=== PATIENT | female | born 1955 | race Caucasian/White ===

== ENCOUNTER 2016-08-20 10:26 | Emergency (ER) | payer BC ==
[2016-08-20 10:34] VITALS: BP 115/72
--- NOTE | 2016-08-20 10:37 | UC ---
Skin Complaint HPI - HPI Summary HPI Summary: 61 YEAR OLD FEMALE PRESENTS WITH RASH ON RIGHT LOWER LEG. - History of Current Complaint Chief Complaint: UCSkin Time Seen by Provider: 08/20/16 10:36 Stated Complaint: RASH - Allergy/Home Medications Allergies/Adverse Reactions: Allergies Allergy/AdvReac Type Severity Reaction Status Date / Time No Known Allergies Allergy Verified 07/10/13 12:55 Home Medications: Home Medications Aspirin [Aspirin 81 MG TAB] 81 mg PO 08/20/16 [History Confirmed 08/20/16] Multiple Vitamins W/ Minerals [Multivitamin] 1 liq PO 08/20/16 [History] Review of Systems Constitutional: Negative Skin: Rash Eyes: Negative ENT: Negative Respiratory: Negative Cardiovascular: Negative Gastrointestinal: Negative Genitourinary: Negative Motor: Negative Neurovascular: Negative Musculoskeletal: Negative Neurological: Negative Psychological: Negative All Other Systems Reviewed And Are Negative: Yes PMH/Surg Hx/FS Hx/Imm Hx - Surgical History Surgical History: Yes Surgery Procedure, Year, and Place: . tonsillectomy. vocal chord polyps - Social History Alcohol Use: Weekly Substance Use Type: None Smoking Status (MU): Former Smoker When Did the Patient Quit Smoking/Using Tobacco: 40 years ago Physical Exam Triage Information Reviewed: Yes Vital Signs: Initial Vital Signs Temp 36.6 C 08/20/16 10:31 Pulse 80 08/20/16 10:31 Resp 16 08/20/16 10:31 BP 115/72 08/20/16 10:31 Pulse Ox 98 08/20/16 10:31 Eye Exam: Normal ENT Exam: Normal Dental Exam: Normal Neck exam: Normal Neck: Positive: 1 Respiratory Exam: Normal Cardiovascular Exam: Normal Abdominal Exam: Normal Musculoskeletal Exam: Normal Neurological Exam: Normal Psychological Exam: Normal Skin: Positive: rashes - RIGHT LOWER LEG RASH Course/Dx - Diagnoses Provider Diagnoses: RASH Discharge - Discharge Plan Condition: Stable Disposition: HOME Prescriptions: DOXYcycline CAP(*) [DOXYcycline 100MG CAP(*)] 100 mg PO BID #14 cap Methylprednisolone [Medrol Dosepak 4 MG*] 4 mg PO .SEE GUSTAVO INSTRUCTION #21 tab Triamcinolone 0.1% CREAM(NF) [Kenalog Cream 0.1%(NF)] 1 applic TOPICAL BID #45 gm Patient Education Materials: Acute Rash (ED), Insect Bite or Sting (ED) Referrals: Lise Ragsdale MD [Primary Care Provider] - As Soon As Possible
== END 2016-08-20 10:49 | disposition home or self-care (01) ==
LOC: UCEAST 10:26
DX: R21 Rash and other nonspecific skin eruption (principal); Z87.891 Personal history of nicotine dependence
CPT/HCPCS: 99212; G0463

== ENCOUNTER 2017-07-12 08:47 | Emergency (ER) | payer BC ==
[2017-07-12 09:01] VITALS: BP 139/106
[2017-07-12] MEDS ORDERED: DOXYcycline CAP(*) 100 MG PO ONE (09:15)
--- NOTE | 2017-07-12 09:23 | UC ---
Skin Complaint HPI - HPI Summary HPI Summary: 62 yo WF c/o tick bite on her right upper back noticed this AM after being out in backyard last night - History of Current Complaint Chief Complaint: UCSkin Time Seen by Provider: 07/12/17 09:10 Stated Complaint: TICK BITE Hx Obtained From: Patient Onset/Duration: Sudden Onset Skin Exposure Onset/Duration: Minutes Ago Onset Severity: Mild Current Severity: Mild Pain Intensity: 0 Location: Other - right upper back Character: Redness Aggravating Factor(s): Nothing Alleviating Factor(s): Nothing Associated Signs & Symptoms: Positive: Negative - Allergy/Home Medications Allergies/Adverse Reactions: Allergies Allergy/AdvReac Type Severity Reaction Status Date / Time No Known Allergies Allergy Verified 07/12/17 09:01 Review of Systems Constitutional: Negative Skin: Other - tick bite on back Eyes: Negative ENT: Negative Respiratory: Negative Cardiovascular: Negative Gastrointestinal: Negative Genitourinary: Negative Motor: Negative Neurovascular: Negative Musculoskeletal: Negative Neurological: Negative Psychological: Negative Is Patient Immunocompromised?: No All Other Systems Reviewed And Are Negative: Yes PMH/Surg Hx/FS Hx/Imm Hx Previously Healthy: Yes - Surgical History Surgical History: Yes Surgery Procedure, Year, and Place: . tonsillectomy. vocal chord polyps - Social History Alcohol Use: Weekly Substance Use Type: None Smoking Status (MU): Former Smoker When Did the Patient Quit Smoking/Using Tobacco: 40 years ago Physical Exam Triage Information Reviewed: Yes Appearance: No Pain Distress Vital Signs: Initial Vital Signs Temp 36.6 C 07/12/17 08:56 Pulse 87 07/12/17 08:56 Resp 20 07/12/17 08:56 BP 139/106 07/12/17 08:56 Pulse Ox 98 07/12/17 08:56 Vital Signs Reviewed: Yes Eye Exam: Normal ENT Exam: Normal ENT: Positive: Normal ENT inspection Dental Exam: Normal Neck exam: Normal Respiratory Exam: Normal Cardiovascular Exam: Normal Cardiovascular: Positive: RRR Abdomen Description: Positive: Nontender Musculoskeletal Exam: Normal Neurological Exam: Normal Neurological: Positive: Alert Psychological Exam: Normal Skin: Positive: significant lesion(s) - tick still attached to right upper back with mild surrounding erythema Course/Dx - Course Course Of Treatment: tick removed successfully with tick remover, one dose of doxycycline 200mg x1 mg given in clinic - pt worried but advised that likely tick had not had enough time to attach and engorge (<72hrs) - Diagnoses Provider Diagnoses: tick bite Discharge - Sign-Out/Discharge Documenting (check all that apply): Discharge/Admit/Transfer - Discharge Plan Condition: Stable Disposition: HOME Patient Education Materials: Tick Bite (ED) Referrals: Lise Ragsdale MD [Primary Care Provider] - - Billing Disposition and Condition Condition: STABLE Disposition: HOME
== END 2017-07-12 09:20 | disposition home or self-care (01) ==
LOC: UCEAST 08:47
DX: S20.461A Insect bite (nonvenomous) of right back wall of thorax, initial encounter (principal); Z87.891 Personal history of nicotine dependence; W57.XXXA Bitten or stung by nonvenomous insect and other nonvenomous arthropods, initial encounter
CPT/HCPCS: 99212; A9270-GY; G0463